=== PATIENT | male | born 1965 | race African-American/Black ===

== ENCOUNTER 2017-07-27 10:29 | Inpatient (IN) | payer OTHER ==
[2017-07-27 10:57] VITALS: BMI 29.7
--- NOTE | 2017-07-27 14:14 | HP ---
Admission [facility] Chief Complaint: "I'm here for Alcohol and Substance Abuse." Patient is here for Rehab for Alcohol, Cocaine, and Marijuana. Allergies/Adverse Reactions: Allergies Allergy/AdvReac Type Severity Reaction Status Date / Time tomato Allergy Severe Swelling Verified 07/27/17 10:57 No Known Drug Allergies Allergy Verified 07/27/17 10:57 History of Present Illness: Pt. is a 51 YO male here for Rehab for Alcohol, Cocaine, and Marijuana. Patient had a Detox admission at [facility] [place] in 06/2017. Longest recent period of sobriety: approx. 5 years (2011 - 02/2017). Exam Limitations: No Limitations - Ebola screening Have you traveled outside of the country in the last 21 days: No Have you had contact with anyone from an Ebola affected area: No Have you been sick,other than usual withdrawal symptoms: No Do you have a fever: No - Review of Systems Constitutional: Malaise, Night Sweats, Changes in sleep EENT: reports: Hearing Loss (Left Ear.) Respiratory: reports: No Symptoms reported Cardiac: reports: No Symptoms Reported GI: reports: No Symptoms Reported : reports: No Symptoms Reported Musculoskeletal: reports: No Symptoms Reported Integumentary: reports: No Symptoms Reported Neuro: reports: Headache Endocrine: reports: No Symptoms Reported Hematology: reports: Anemia (Iron-Deficiency type in past.) Psychiatric: reports: Judgement Intact, Mood/Affect Appropiate, Orientated x3, Depressed (Verbal Therapy only in past.) Other Systems: Reviewed and Negative Patient History - Patient Medical History Hx Anemia: Yes (Iron-Deficiency type in past.) Hx Asthma: No Hx Chronic Obstructive Pulmonary Disease (COPD): No Hx Cancer: No Hx Cardiac Disorders: No Hx Congestive Heart Failure: No Hx Hypertension: No Hx Hypercholesterolemia: Yes (Takes Zocor.) Hx Pacemaker: No HX Cerebrovascular Accident: No Hx Seizures: No Hx Dementia: No Hx Diabetes: No Hx Gastrointestinal Disorders: No Hx Liver Disease: No Hx Genitourinary Disorders: No Hx Sexually Transmitted Disorders: No Hx Renal Disease (ESRD): No Hx Thyroid Disease: No Hx Human Immunodeficiency Virus (HIV): No (Negative History.) Hx Hepatitis C: No (Negative History.) Hx Depression: Yes (Verbal Therapy only in past; No meds.) Hx Suicide Attempt: No (PATIENT DENIES CURRENT SI / HI.) Hx Bipolar Disorder: No Hx Schizophrenia: No Other Medical History: PTSD. - Patient Surgical History Past Surgical History: No Hx Neurologic Surgery: No Hx Cataract Extraction: No Hx Cardiac Surgery: No Hx Lung Surgery: No Hx Breast Surgery: No Hx Breast Biopsy: No Hx Abdominal Surgery: No Hx Appendectomy: No Hx Cholecystectomy: No Hx Genitourinary Surgery: No Hx Orthopedic Surgery: No Other Surgical History: DENIES. Anesthesia Reaction: No - PPD History Previous Implant?: Yes Documented Results: Negative w/o proof Implanted On Prior [facility] Admission?: No PPD to be Administered?: Yes - Reproductive History Patient is a Female of Child Bearing Age (11 -55 yrs old): No (PATIENT IS MALE.) - Smoking Cessation Smoking history: Never smoked Have you smoked in the past 12 months: No Cigars Per Day: 0 Hx Chewing Tobacco Use: No Initiated information on smoking cessation: No - Substance & Tx. History Hx Alcohol Use: Yes Hx Substance Use: Yes Substance Use Type: Alcohol, Cocaine, Marijuana Hx Substance Use Treatment: Yes (Detox admssion at [facility] [place] 2016.) - Substances Abused Alcohol Route: Oral Frequency: Daily Amount used: 2-3 PINTS VODKA/12 PK BEER Age of first use: 9 Date of Last Use: 07/27/17 Crack Route: Smoking Frequency: Daily Amount used: $100 Age of first use: 20 Date of Last Use: 07/26/17 Marijuana/Hashish Route: Smoking Frequency: Daily Amount used: 1/2 JOINT Age of first use: 9 Date of Last Use: 07/25/17 Family Disease History - Family Disease History Family History: Denies Admission Physical Exam BHS - Vital Signs Vital Signs: Vital Signs - 24 hr 07/27/17 10:55 Temperature 98.2 F Pulse Rate 79 Respiratory 20 Rate Blood Pressure 122/77 - Physical General Appearance: Yes: Nourished, Appropriately Dressed, Mild Distress, Irritable, Anxious HEENTM: Yes: Hearing grossly Normal, Normocephalic, Normal Voice, DELTA, Pharynx Normal Respiratory: Yes: Chest Non-Tender, Lungs Clear, No Respiratory Distress, No Accessory Muscle Use Neck: Yes: No masses,lesions,Nodules, Supple, Trachea in good position Breast: Yes: Breast Exam Deferred Cardiology: Yes: Regular Rhythm, Regular Rate, S1, S2 Abdominal: Yes: Normal Bowel Sounds, Non Tender, Flat, Soft Genitourinary: Yes: Within Normal Limits Back: Yes: Normal Inspection Musculoskeletal: Yes: full range of Motion, Gait Steady Extremities: Yes: Normal Range of Motion, Non-Tender Neurological: Yes: Fully Oriented, Alert, Normal Mood/Affect, Normal Response Integumentary: Yes: Normal Color, Dry, Warm Lymphatic: Yes: Within Normal Limits - Diagnostic (1) Alcohol dependence, uncomplicated Current Visit: Yes Status: Chronic (2) Hypercholesterolemia Current Visit: Yes Status: Chronic (3) Cocaine dependence, uncomplicated Current Visit: Yes Status: Chronic (4) Cannabis dependence, uncomplicated Current Visit: Yes Status: Chronic (5) Insomnia Current Visit: Yes Status: Chronic Qualifiers: Insomnia type: unspecified Qualified Code(s): G47.00 - Insomnia, unspecified; G47.00 - Insomnia, unspecified (6) History of posttraumatic stress disorder (PTSD) Current Visit: Yes Status: Chronic Cleared for Admission [facility] - Detox or Rehab Claeared for Rehab Admission: Yes (HARMAN Re-Checked Just Prior to Admission Medical Assessment: 0.049.) [facility] Breath Alcohol Content Breath Alcohol Content: 0.108 Urine Drug Screen - Results Drug Screen Negative: No Urine Drug Screen Results: ROBY-Cocaine Inpatient Rehab Admission - Initial Determination Are CD services needed?: Yes Free of communicable disease: Yes Not in need of hospitalization: Yes - Rehab Admission Criteria Previous failed treatment: Yes Comorbidities: Yes Patient is meeting Inpatient Rehab admission criteria:: Yes
[2017-07-27] MEDS ORDERED: guaiFENesin/D-METHORPHAN HB 10 ML UNIT-DOSE CUPS PO PRN (15:04)
[2017-07-27] MEDS ORDERED: IBUPROFEN 400 MG TABLET (FP) PO PRN (15:04)
[2017-07-27] MEDS ORDERED: MAG HYDROX/AL HYDROX/SIMETH 30 ML UNIT-DOSE CUP PO PRN (15:04)
[2017-07-27] MEDS ORDERED: ACETAMINOPHEN 325 MG TABLET (FP) PO PRN (15:04)
[2017-07-27] MEDS ORDERED: P-EPHED 60MG/TRIPROLIDI 2.5MG TABLET PO PRN (15:04)
[2017-07-27] MEDS ORDERED: MAGNESIUM CITRATE 300 ML BOTTLE PO PRN (15:04)
[2017-07-27] MEDS ORDERED: LOPERAMIDE HCL 2 MG CAPSULE PO PRN (15:04)
[2017-07-27] MEDS ORDERED: MAGNESIUM HYDROX 2400MG/30ML ORAL SUSPENSION 30 ML CUP PO PRN (15:04)
[2017-07-27] MEDS ORDERED: hydrOXYzine PAMOATE 50 MG CAPSULE (FP) PO PRN (15:04)
[2017-07-27] MEDS ORDERED: MENTHOL/PHENOL 1 EACH UD MM PRN (15:04)
[2017-07-27] MEDS ORDERED: TUBERCULIN PPD 5 TU/0.1ML VIAL ID ONE ×2 (16:41→17:39)
[2017-07-27 17:03] LABS: URINE APPEARANCE CLEAR; URINE BILIRUBIN NEGATIVE (NEGATIVE); URINE BLOOD NEGATIVE (NEGATIVE); URINE COLOR COLORLESS; URINE GLUCOSE (UA) NEGATIVE (NEGATIVE); URINE KETONE NEGATIVE (NEGATIVE); URINE NITRITE NEGATIVE (NEGATIVE); URINE PROTEIN NEGATIVE (NEGATIVE); URINE UROBILINOGEN NEGATIVE mg/dL (0.2-1.0)
[2017-07-27 17:08] LABS: MCH 29.6 pg (25.7-33.7); MCHC 33.6 g/dl (32.0-35.9); MEAN CELL VOLUME 88.2 fl (80-96); MEAN PLT VOLUME 8.3 fl (7.5-11.1); PLATELET COUNT 220 K/MM3 (134-434); RDW 12.5 % (11.9-15.9); WHITE BLOOD COUNT 4.6 K/mm3 (4.0-10.0)
[2017-07-27] MEDS: ASPIRIN 81 MG CHEWABLE TABLETS PO SCH (17:35)
[2017-07-27 17:43] LABS: ALBUMIN 3.8 g/dl (3.4-5.0); ALK PHOS 71 U/L (45-117); ANION GAP 10 (8-16); BILIRUBIN,TOTAL 0.6 mg/dL (0.2-1.0); CALCIUM 9.1 mg/dL (8.5-10.1); CO2 26 mmol/L (21-32); CREATININE 1.1 mg/dL (0.7-1.3); GLUCOSE,RANDOM 93 mg/dL (74-106); SGOT/AST 31 U/L (15-37); SGPT/ALT 39 U/L (12-78); TOT PROT 7.3 g/dl (6.4-8.2)
--- NOTE | 2017-07-27 18:16 | PN ---
[facility] Progress Note Note: Psychiatry Attending's psychologist personnel note : Called to enter an order for trazodone. New admission : 51 y/o male with chronic insomnia. Recently discharged from [facility]. No prior history of psychiatric hospitalizations. Issues : Alcohol,cocaine and cannabis dependence. Last took trazodone 100 mg/hs on 07/18/17 (self-report). [facility] report is appreciated.Spoke to patient via telephone. History taken.Reliable.Intervention : Trazodone 50 mg po hs.Ordered. Risk of priapism is discussed with patient. NO reported history of adverse events. Mr Hummel is in agreement with this careplan.
[2017-07-27] MEDS: THIAMINE HCL 100 MG TABLET (FP) PO SCH (21:17)
[2017-07-27] MEDS: ATORVASTATIN CA 10 MG TABLET (FP) PO SCH (21:17)
[2017-07-27] MEDS: traZODone HCL 50 MG TABLET (FP) PO SCH (21:17)
[2017-07-27 22:49] LABS: URINE LEUK ESTERASE Negative (NEGATIVE)
[2017-07-28] MEDS: PRENATAL VITAMINS W/ FOLIC ACID TABLET (FP) PO SCH (09:58)
[2017-07-28] MEDS: ASPIRIN 81 MG CHEWABLE TABLETS PO SCH (09:58)
--- NOTE | 2017-07-28 10:25 | EKG ---
Test Reason : Blood Pressure : / mmHG Vent. Rate : 065 BPM Atrial Rate : 065 BPM P-R Int : 188 ms QRS Dur : 082 ms QT Int : 402 ms P-R-T Axes : 051 032 027 degrees QTc Int : 418 ms NORMAL SINUS RHYTHM POSSIBLE LEFT ATRIAL ENLARGEMENT ST ELEVATION, CONSIDER EARLY REPOLARIZATION BORDERLINE ECG WHEN COMPARED WITH ECG OF 27-JUL-2017 23:37, NO SIGNIFICANT CHANGE WAS FOUND Confirmed by JOLIE MCMULLEN, DEEPAK ([id number]) on 07/28/2017 10:25:10 AM Referred By: Confirmed By:DEEPAK DAVE MD
[2017-07-28] MEDS ORDERED: FLU VACCINE QUAD 60 MCG/0.5 ML (MDV 17-18) IM ONE (12:00)
[2017-07-28] MEDS ORDERED: PNEUMOCOCCAL 23 VACCINE 0.5 ML VIAL IM ONE (12:00)
[2017-07-28] MEDS ORDERED: PNEUMOC 13-VAL CONJ-DIP CRM/PF 0.5 ML DISP.SYRIN IM ONE (12:00)
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
[2017-07-28 13:44] LABS: HIV 1 & 2 AB NEGATIVE; HIV 1 AGp24 NEGATIVE
[2017-07-28] MEDS: traZODone HCL 50 MG TABLET (FP) PO SCH (21:22)
[2017-07-28] MEDS: ATORVASTATIN CA 10 MG TABLET (FP) PO SCH (21:22)
[2017-07-28] MEDS: THIAMINE HCL 100 MG TABLET (FP) PO SCH (21:22)
[2017-07-29] MEDS: ESCITALOPRAM OXALATE 10 MG TABLET (FP) PO SCH (10:06)
[2017-07-29] MEDS: PRENATAL VITAMINS W/ FOLIC ACID TABLET (FP) PO SCH (10:06)
[2017-07-29] MEDS: ASPIRIN 81 MG CHEWABLE TABLETS PO SCH (10:06)
--- NOTE | 2017-07-29 15:20 | PN ---
Psychiatric Progress Note Vital Signs: Vital Signs Period Temp Pulse Resp BP Sys/Arreola Pulse Ox Last 24 Hr 98.0 F 80 18-18 106/78 Date of Session: 07/29/17 Chief Complaint:: progress update. HPI: Patient is addressing alcohol, cocaine, cannabis dependence comorbid PTSD, Mood diorder. ROS: WNL Current Medications: Active Medications Generic Name Dose Route Start Last Admin Trade Name Freq PRN Reason Stop Dose Admin Acetaminophen 650 mg 07/27/17 15:04 Tylenol - PO Q4H PRN PAIN Al Hydroxide/Mg Hydroxide 30 ml 07/27/17 15:04 Mylanta Oral Suspension - PO Q6H PRN DYSPEPSIA Aspirin 81 mg 07/27/17 15:51 07/29/17 10:06 Asa - PO 81 mg DAILY JANICE Administration Atorvastatin Calcium 10 mg 07/27/17 22:00 07/28/17 21:22 Lipitor - PO 10 mg HS JANICE Administration Escitalopram Oxalate 10 mg 07/29/17 10:00 07/29/17 10:06 Lexapro - PO 10 mg DAILY JANICE Administration Eucalyptus/Menthol/Phenol/Sorbitol 1 each 07/27/17 15:04 Cepastat Lozenge - MM Q4H PRN SORE THROAT Guaifenesin 10 ml 07/27/17 15:04 Robitussin Dm - PO Q6H PRN COUGH Hydroxyzine Pamoate 50 mg 07/27/17 15:04 Vistaril - PO Q4H PRN AGITATION Ibuprofen 400 mg 07/27/17 15:04 Motrin - PO Q6H PRN SEVERE PAIN Loperamide HCl 4 mg 07/27/17 15:04 Imodium - PO Q6H PRN DIARRHEA Magnesium Citrate 300 ml 07/27/17 15:04 Citroma - PO Q48H PRN CONSTIPATION Magnesium Hydroxide 30 ml 07/27/17 15:04 Milk Of Magnesia - PO DAILY PRN CONSTIPATION Multivit/Folic Acid/Iron 1 tab 07/28/17 10:00 07/29/17 10:06 Vitamins (Sjr) - PO 1 tab DAILY JANICE Administration Pseudoephedrine/Triprolidine 1 combo 07/27/17 15:04 Actifed - PO TID PRN NASAL CONGESTION Thiamine HCl 100 mg 07/27/17 22:00 07/28/17 21:22 Vitamin B1 - PO 100 mg HS JANICE Administration Trazodone HCl 100 mg 07/29/17 15:18 Desyrel - PO HS JANICE Current Side Effect: No Lab tests ordered: No Lab tests reviewed: Yes Provider note:: Patient reports he feels depressed, unable to sleep well, he has flashbaks and nightmares relate to trauma. Reports treated with Trazodone, wants to restart. Psychoeducation and supports provided, will add Trazodone, continue to monitor progress. Total face to face time:: 25 Mental Status Exam - Mental Status Exam Alert and Oriented to: Time, Place, Person Cognitive Function: Good Patient Appearance: Well Groomed Mood: Sad, Anxious Affect: Appropriate, Mood Congruent Patient Behavior: Appropriate, Cooperative Speech Pattern: Clear, Appropriate Voice Loudness: Normal Thought Process: Intact, Goal Oriented Thought Disorder: Not Present Hallucinations: Denies Suicidal Ideation: Denies Homicidal Ideation: Denies Insight/Judgement: Fair Sleep: Fair Appetite: Good Muscle strength/Tone: Normal Psychiatric Treatment Plan - Problem List (1) Alcohol dependence Current Visit: Yes (2) Cocaine dependence Current Visit: Yes (3) Cannabis dependence Current Visit: Yes (4) Post traumatic stress disorder (PTSD) Current Visit: Yes (5) Mood disorder Current Visit: Yes
[2017-07-29] MEDS: traZODone HCL 100 MG TABLET (FP) PO SCH (21:23)
[2017-07-29] MEDS: ATORVASTATIN CA 10 MG TABLET (FP) PO SCH (21:23)
[2017-07-29] MEDS: THIAMINE HCL 100 MG TABLET (FP) PO SCH (21:23)
[2017-07-30] MEDS: PRENATAL VITAMINS W/ FOLIC ACID TABLET (FP) PO SCH (10:13)
[2017-07-30] MEDS: ASPIRIN 81 MG CHEWABLE TABLETS PO SCH (10:13)
[2017-07-30] MEDS: ESCITALOPRAM OXALATE 10 MG TABLET (FP) PO SCH (10:13)
--- NOTE | 2017-07-30 12:00 | EKG ---
Test Reason : Blood Pressure : / mmHG Vent. Rate : 065 BPM Atrial Rate : 065 BPM P-R Int : 186 ms QRS Dur : 078 ms QT Int : 412 ms P-R-T Axes : 054 036 038 degrees QTc Int : 428 ms NORMAL SINUS RHYTHM ST ELEVATION, CONSIDER EARLY REPOLARIZATION, PERICARDITIS, OR INJURY ABNORMAL ECG NO PREVIOUS ECGS AVAILABLE Confirmed by LOVELY ALVAREZ MD ([id number]) on 07/30/2017 12:00:17 PM Referred By: Confirmed By:LOVELY ALVAREZ MD
[2017-07-30] MEDS: traZODone HCL 100 MG TABLET (FP) PO SCH (21:27)
[2017-07-30] MEDS: ATORVASTATIN CA 10 MG TABLET (FP) PO SCH (21:27)
[2017-07-30] MEDS: THIAMINE HCL 100 MG TABLET (FP) PO SCH (21:28)
[2017-07-31] MEDS: ESCITALOPRAM OXALATE 10 MG TABLET (FP) PO SCH (09:52)
[2017-07-31] MEDS: PRENATAL VITAMINS W/ FOLIC ACID TABLET (FP) PO SCH (09:52)
[2017-07-31] MEDS: ASPIRIN 81 MG CHEWABLE TABLETS PO SCH (09:53)
[2017-07-31] MEDS: ATORVASTATIN CA 10 MG TABLET (FP) PO SCH (21:15)
[2017-07-31] MEDS: traZODone HCL 100 MG TABLET (FP) PO SCH (21:15)
[2017-07-31] MEDS: THIAMINE HCL 100 MG TABLET (FP) PO SCH (21:15)
[2017-08-01] MEDS: ESCITALOPRAM OXALATE 10 MG TABLET (FP) PO SCH (09:56)
[2017-08-01] MEDS: PRENATAL VITAMINS W/ FOLIC ACID TABLET (FP) PO SCH (09:56)
[2017-08-01] MEDS: ASPIRIN 81 MG CHEWABLE TABLETS PO SCH (09:56)
[2017-08-01] MEDS: THIAMINE HCL 100 MG TABLET (FP) PO SCH (21:23)
[2017-08-01] MEDS: traZODone HCL 100 MG TABLET (FP) PO SCH (21:23)
[2017-08-01] MEDS: ATORVASTATIN CA 10 MG TABLET (FP) PO SCH (21:23)
[2017-08-02] MEDS: ASPIRIN 81 MG CHEWABLE TABLETS PO SCH (09:38)
[2017-08-02] MEDS: PRENATAL VITAMINS W/ FOLIC ACID TABLET (FP) PO SCH (09:38)
[2017-08-02] MEDS: ESCITALOPRAM OXALATE 10 MG TABLET (FP) PO SCH (09:38)
[2017-08-02] MEDS: traZODone HCL 100 MG TABLET (FP) PO SCH (21:23)
[2017-08-02] MEDS: THIAMINE HCL 100 MG TABLET (FP) PO SCH (21:23)
[2017-08-02] MEDS: ATORVASTATIN CA 10 MG TABLET (FP) PO SCH (21:23)
[2017-08-03] MEDS: PRENATAL VITAMINS W/ FOLIC ACID TABLET (FP) PO SCH (09:46)
[2017-08-03] MEDS: ASPIRIN 81 MG CHEWABLE TABLETS PO SCH (09:46)
[2017-08-03] MEDS: ESCITALOPRAM OXALATE 10 MG TABLET (FP) PO SCH (09:46)
[2017-08-03] MEDS: THIAMINE HCL 100 MG TABLET (FP) PO SCH (21:12)
[2017-08-03] MEDS: ATORVASTATIN CA 10 MG TABLET (FP) PO SCH (21:12)
[2017-08-03] MEDS: traZODone HCL 100 MG TABLET (FP) PO SCH (21:12)
[2017-08-04] MEDS: PRENATAL VITAMINS W/ FOLIC ACID TABLET (FP) PO SCH (09:50)
[2017-08-04] MEDS: ESCITALOPRAM OXALATE 10 MG TABLET (FP) PO SCH (09:50)
[2017-08-04] MEDS: ASPIRIN 81 MG CHEWABLE TABLETS PO SCH (09:51)
[2017-08-04] MEDS: THIAMINE HCL 100 MG TABLET (FP) PO SCH (21:10)
[2017-08-04] MEDS: traZODone HCL 100 MG TABLET (FP) PO SCH (21:10)
[2017-08-04] MEDS: ATORVASTATIN CA 10 MG TABLET (FP) PO SCH (21:10)
[2017-08-05] MEDS: ESCITALOPRAM OXALATE 10 MG TABLET (FP) PO SCH (09:59)
[2017-08-05] MEDS: ASPIRIN 81 MG CHEWABLE TABLETS PO SCH (09:59)
[2017-08-05] MEDS: PRENATAL VITAMINS W/ FOLIC ACID TABLET (FP) PO SCH (09:59)
[2017-08-05] MEDS: traZODone HCL 100 MG TABLET (FP) PO SCH (21:16)
[2017-08-05] MEDS: ATORVASTATIN CA 10 MG TABLET (FP) PO SCH (21:16)
[2017-08-05] MEDS: THIAMINE HCL 100 MG TABLET (FP) PO SCH (21:16)
[2017-08-06] MEDS: ESCITALOPRAM OXALATE 10 MG TABLET (FP) PO SCH (09:50)
[2017-08-06] MEDS: PRENATAL VITAMINS W/ FOLIC ACID TABLET (FP) PO SCH (09:50)
[2017-08-06] MEDS: ASPIRIN 81 MG CHEWABLE TABLETS PO SCH (09:50)
[2017-08-06] MEDS: THIAMINE HCL 100 MG TABLET (FP) PO SCH (21:10)
[2017-08-06] MEDS: traZODone HCL 100 MG TABLET (FP) PO SCH (21:10)
[2017-08-06] MEDS: ATORVASTATIN CA 10 MG TABLET (FP) PO SCH (21:10)
[2017-08-07] MEDS: ASPIRIN 81 MG CHEWABLE TABLETS PO SCH (09:48)
[2017-08-07] MEDS: ESCITALOPRAM OXALATE 10 MG TABLET (FP) PO SCH (09:49)
[2017-08-07] MEDS: PRENATAL VITAMINS W/ FOLIC ACID TABLET (FP) PO SCH (09:49)
[2017-08-07] MEDS: THIAMINE HCL 100 MG TABLET (FP) PO SCH (21:11)
[2017-08-07] MEDS: traZODone HCL 100 MG TABLET (FP) PO SCH (21:11)
[2017-08-07] MEDS: ATORVASTATIN CA 10 MG TABLET (FP) PO SCH (21:11)
[2017-08-08] MEDS: ESCITALOPRAM OXALATE 10 MG TABLET (FP) PO SCH (09:49)
[2017-08-08] MEDS: PRENATAL VITAMINS W/ FOLIC ACID TABLET (FP) PO SCH (09:49)
[2017-08-08] MEDS: ASPIRIN 81 MG CHEWABLE TABLETS PO SCH (09:49)
[2017-08-08] MEDS: ATORVASTATIN CA 10 MG TABLET (FP) PO SCH (21:17)
[2017-08-08] MEDS: traZODone HCL 100 MG TABLET (FP) PO SCH (21:17)
[2017-08-08] MEDS: THIAMINE HCL 100 MG TABLET (FP) PO SCH (21:17)
[2017-08-09 06:52] VITALS: TEMP 97.8
[2017-08-09] MEDS: ASPIRIN 81 MG CHEWABLE TABLETS PO SCH (10:15)
[2017-08-09] MEDS: ESCITALOPRAM OXALATE 10 MG TABLET (FP) PO SCH (10:15)
[2017-08-09] MEDS: PRENATAL VITAMINS W/ FOLIC ACID TABLET (FP) PO SCH (10:15)
[2017-08-09] MEDS: ATORVASTATIN CA 10 MG TABLET (FP) PO SCH (21:19)
[2017-08-09] MEDS: THIAMINE HCL 100 MG TABLET (FP) PO SCH (21:19)
[2017-08-09] MEDS: traZODone HCL 100 MG TABLET (FP) PO SCH (21:19)
[2017-08-10 06:46] VITALS: BP 120/67; PULSE 66
[2017-08-10] MEDS: ESCITALOPRAM OXALATE 10 MG TABLET (FP) PO SCH (09:50)
[2017-08-10] MEDS: ASPIRIN 81 MG CHEWABLE TABLETS PO SCH (09:50)
[2017-08-10] MEDS: PRENATAL VITAMINS W/ FOLIC ACID TABLET (FP) PO SCH (09:50)
--- NOTE | 2017-08-10 10:04 | PN ---
Psychiatric Progress Note Vital Signs: Vital Signs Period Temp Pulse Resp BP Sys/Arreola Pulse Ox Last 24 Hr 97.8 F 66 16-16 120/67 Date of Session: 08/10/17 Chief Complaint:: discharge visit HPI: Patient has addressed alcohol, cocaine, cannabis dependence comorbid PTSD and Mood disorder. ROS: high cholesterol medically managed. Current Medications: Active Medications Generic Name Dose Route Start Last Admin Trade Name Freq PRN Reason Stop Dose Admin Acetaminophen 650 mg 07/27/17 15:04 Tylenol - PO Q4H PRN PAIN Al Hydroxide/Mg Hydroxide 30 ml 07/27/17 15:04 Mylanta Oral Suspension - PO Q6H PRN DYSPEPSIA Aspirin 81 mg 07/27/17 15:51 08/10/17 09:50 Asa - PO 81 mg DAILY JANICE Administration Atorvastatin Calcium 10 mg 07/27/17 22:00 08/09/17 21:19 Lipitor - PO 10 mg HS JANICE Administration Escitalopram Oxalate 10 mg 07/29/17 10:00 08/10/17 09:50 Lexapro - PO 10 mg DAILY JANICE Administration Eucalyptus/Menthol/Phenol/Sorbitol 1 each 07/27/17 15:04 Cepastat Lozenge - MM Q4H PRN SORE THROAT Guaifenesin 10 ml 07/27/17 15:04 Robitussin Dm - PO Q6H PRN COUGH Hydroxyzine Pamoate 50 mg 07/27/17 15:04 Vistaril - PO Q4H PRN AGITATION Ibuprofen 400 mg 07/27/17 15:04 Motrin - PO Q6H PRN SEVERE PAIN Loperamide HCl 4 mg 07/27/17 15:04 Imodium - PO Q6H PRN DIARRHEA Magnesium Citrate 300 ml 07/27/17 15:04 Citroma - PO Q48H PRN CONSTIPATION Magnesium Hydroxide 30 ml 07/27/17 15:04 Milk Of Magnesia - PO DAILY PRN CONSTIPATION Multivit/Folic Acid/Iron 1 tab 07/28/17 10:00 08/10/17 09:50 Vitamins (Sjr) - PO 1 tab DAILY JANICE Administration Pseudoephedrine/Triprolidine 1 combo 07/27/17 15:04 Actifed - PO TID PRN NASAL CONGESTION Thiamine HCl 100 mg 07/27/17 22:00 08/09/17 21:19 Vitamin B1 - PO 100 mg HS JANICE Administration Trazodone HCl 100 mg 07/29/17 22:00 08/09/17 21:19 Desyrel - PO 100 mg HS JANICE Administration Current Side Effect: No Lab tests ordered: No Lab tests reviewed: Yes Provider note:: Patient has completed today his treatment and met his goals, will continue to address his issues at the next level of care, he was referred to [facility] for resedential. Patient gained insights into importance of changning attitudes/behavior and utilitation of supports available to prevent relapses. Medications(Trazodone and Lexapro) well tolerated , patient reports he feels much better, his mood improved, he is more hopeful, will f/u at [facility] for his physical and mental issues. Patient was encouraged to take medications as directed. Scripts provided for 30 days, patient is stable for discharge today. Total face to face time:: 15 Mental Status Exam - Mental Status Exam Alert and Oriented to: Time, Place, Person Cognitive Function: Good Patient Appearance: Well Groomed Mood: Hopeful Affect: Appropriate, Mood Congruent Patient Behavior: Cooperative Speech Pattern: Clear, Appropriate Voice Loudness: Normal Thought Process: Intact, Goal Oriented Thought Disorder: Not Present Hallucinations: Denies Suicidal Ideation: Denies Homicidal Ideation: Denies Insight/Judgement: Fair Sleep: Fair Appetite: Fair Muscle strength/Tone: Normal Gait/Station: Normal Psychiatric Treatment Plan - Problem List (1) Alcohol dependence Current Visit: Yes (2) Cocaine dependence Current Visit: Yes (3) Cannabis dependence Current Visit: Yes (4) Post traumatic stress disorder (PTSD) Current Visit: Yes (5) Mood disorder Current Visit: Yes
== END 2017-08-10 10:30 | disposition home or self-care (01) | DRG 772 ==
LOC: YASAS 10:29 → Y5N 13:15
PROVIDERS: ADMIT Psychiatry & Neurology Psychiatry; ATTEND Psychiatry & Neurology Psychiatry
PROC: HZ42ZZZ Group Counseling for Substance Abuse Treatment, Cognitive-Behavioral (ICD-10-PCS; principal; 2017-07-27)
DX: F10.20 Alcohol dependence, uncomplicated (principal); F14.20 Cocaine dependence, uncomplicated; F12.20 Cannabis dependence, uncomplicated; F43.10 Post-traumatic stress disorder, unspecified; F39 Unspecified mood [affective] disorder; G47.00 Insomnia, unspecified; Z59.0 Homelessness
CPT/HCPCS: 36415; 80053; 81003; 85027; 85660; 86593; 86803; 87389; 90688; 90732; 93005; 93010; G0008; G0009

== ENCOUNTER 2017-09-07 08:19 | Inpatient (IN) | payer OTHER ==
[2017-09-07 08:47] VITALS: BMI 29.0
--- NOTE | 2017-09-07 12:52 | HP ---
CIWA Score - CIWA Score Nausea/Vomitin-Mild Nausea/No Vomiting Muscle Tremors: 4-Moderate,w/Arms Extend Anxiety: 3 Agitation: 3 Paroxysmal Sweats: 3 Orientation: 0-Oriented Tacttile Disturbances: 0-None Auditory Disturbances: 0-None Visual Disturbances: 0-None Headache: 1-Very Mild CIWA-Ar Total Score: 15 Admission ROS BHS - HPI Chief Complaint: I need detox and rehab Allergies/Adverse Reactions: Allergies Allergy/AdvReac Type Severity Reaction Status Date / Time tomato Allergy Severe Swelling Verified 07/27/17 10:57 No Known Drug Allergies Allergy Verified 07/27/17 10:57 History of Present Illness: Pt is a 51yr old male with history of alcohol and cocaine dependence seeking detox for treatment. Exam Limitations: No Limitations - Ebola screening Have you traveled outside of the country in the last 21 days: No (N) Have you had contact with anyone from an Ebola affected area: No Have you been sick,other than usual withdrawal symptoms: No Do you have a fever: No - Review of Systems Constitutional: Chills, Diaphoresis, Loss of Appetite, Night Sweats, Changes in sleep EENT: reports: Tearing Respiratory: reports: No Symptoms reported Cardiac: reports: Syncope GI: reports: Diarrhea, Poor Appetite, Poor Fluid Intake : reports: No Symptoms Reported Musculoskeletal: reports: Back Pain Integumentary: reports: Flushing, Sweating Endocrine: reports: Excessive Sweating, Flushing, Intolerance to Cold, Intolerance to Heat Hematology: reports: No Symptoms Reported Psychiatric: reports: Judgement Intact, Mood/Affect Appropiate, Orientated x3, Agitated, Anxious Other Systems: Reviewed and Negative Patient History - Patient Medical History Hx Anemia: Yes (Iron-Deficiency type in past.) Hx Asthma: No Hx Chronic Obstructive Pulmonary Disease (COPD): No Hx Cancer: No Hx Cardiac Disorders: No Hx Congestive Heart Failure: No Hx Hypertension: No Hx Hypercholesterolemia: Yes (Takes Zocor.) Hx Pacemaker: No HX Cerebrovascular Accident: No Hx Seizures: No Hx Dementia: No Hx Diabetes: No Hx Gastrointestinal Disorders: No Hx Liver Disease: No Hx Genitourinary Disorders: No Hx Sexually Transmitted Disorders: No Hx Renal Disease (ESRD): No Hx Thyroid Disease: No Hx Human Immunodeficiency Virus (HIV): No (Negative History.) Hx Hepatitis C: No (Negative History.) Hx Depression: Yes Hx Suicide Attempt: No Hx Bipolar Disorder: No Hx Schizophrenia: No - Patient Surgical History Past Surgical History: No Hx Neurologic Surgery: No Hx Cataract Extraction: No Hx Cardiac Surgery: No Hx Lung Surgery: No Hx Breast Surgery: No Hx Breast Biopsy: No Hx Abdominal Surgery: No Hx Appendectomy: No Hx Cholecystectomy: No Hx Genitourinary Surgery: No Hx Section: No Hx Orthopedic Surgery: No Other Surgical History: DENIES. Anesthesia Reaction: No - PPD History Previous Implant?: Yes Documented Results: Negative w/proof Implanted On Prior [facility] Admission?: Yes Date: 07/29/17 Results: 0 mm PPD to be Administered?: No - Reproductive History Patient is a Female of Child Bearing Age (11 -55 yrs old): No - Smoking Cessation Smoking history: Never smoked Have you smoked in the past 12 months: No Cigars Per Day: 0 Hx Chewing Tobacco Use: No Initiated information on smoking cessation: No - Substance & Tx. History Hx Alcohol Use: Yes Hx Substance Use: Yes Substance Use Type: Alcohol, Cocaine, Marijuana Hx Substance Use Treatment: Yes - Substances Abused Crack Route: Smoking Frequency: Daily Amount used: $100 Age of first use: 19 Date of Last Use: 09/06/17 Alcohol-beer Route: Oral Frequency: Daily Amount used: 2-6 pks. Age of first use: 10 Date of Last Use: 09/06/17 Marijuana Route: Smoking Frequency: 3-6 times per week Amount used: $10 Age of first use: 9 Date of Last Use: 09/06/17 Family Disease History - Family Disease History Family History: Denies Admission Physical Exam S - Vital Signs Vital Signs: Vital Signs - 24 hr 09/07/17 08:45 Temperature 98.9 F Pulse Rate 85 Respiratory 18 Rate Blood Pressure 127/80 - Physical General Appearance: Yes: Appropriately Dressed, Moderate Distress, Tremorous, Irritable, Sweating, Anxious HEENTM: Yes: Hearing grossly Normal, Normal Voice, Rhinorrhea Neck: Yes: No masses,lesions,Nodules Breast: Yes: Within Normal Limits Cardiology: Yes: Regular Rhythm, Regular Rate, S1, S2 Abdominal: Yes: Normal Bowel Sounds Genitourinary: Yes: Within Normal Limits Back: Yes: Normal Inspection Musculoskeletal: Yes: full range of Motion, Gait Steady Extremities: Yes: Normal Capillary Refill, Normal Inspection, Tremors Neurological: Yes: Fully Oriented, Alert, Normal Response Integumentary: Yes: Normal Color, Diaphoresis Lymphatic: Yes: Within Normal Limits - Diagnostic (1) Cannabis dependence Current Visit: Yes Status: Chronic (2) Cocaine dependence Current Visit: Yes Status: Chronic Qualifiers: Substance use status: uncomplicated Qualified Code(s): F14.20 - Cocaine dependence, uncomplicated (3) Alcohol dependence, uncomplicated Current Visit: Yes Status: Chronic Cleared for Admission [facility] - Detox or Rehab [facility] Level of Care: Medically Managed Detox Regimen/Protocol: Librium [facility] Breath Alcohol Content Breath Alcohol Content: 0 Urine Drug Screen - Results Drug Screen Negative: No Urine Drug Screen Results: THC-Marijuana, ROBY-Cocaine
[2017-09-07] MEDS ORDERED: ACETAMINOPHEN 325 MG TABLET (FP) PO PRN (12:57)
[2017-09-07] MEDS ORDERED: guaiFENesin/D-METHORPHAN HB 10 ML UNIT-DOSE CUPS PO PRN (12:57)
[2017-09-07] MEDS ORDERED: MENTHOL/PHENOL 1 EACH UD MM PRN (12:57)
[2017-09-07] MEDS ORDERED: LOPERAMIDE HCL 2 MG CAPSULE PO PRN (12:57)
[2017-09-07] MEDS ORDERED: hydrOXYzine PAMOATE 50 MG CAPSULE (FP) PO PRN (12:57)
[2017-09-07] MEDS ORDERED: MAG HYDROX/AL HYDROX/SIMETH 30 ML UNIT-DOSE CUP PO PRN (12:57)
[2017-09-07] MEDS ORDERED: MAGNESIUM CITRATE 300 ML BOTTLE PO PRN (12:57)
[2017-09-07] MEDS ORDERED: P-EPHED 60MG/TRIPROLIDI 2.5MG TABLET PO PRN (12:57)
[2017-09-07] MEDS ORDERED: chlordiazePOXIDE HCL 25 MG CAPSULE PO PRN (12:57)
[2017-09-07] MEDS ORDERED: MAGNESIUM HYDROX 2400MG/30ML ORAL SUSPENSION 30 ML CUP PO PRN (12:57)
[2017-09-07] MEDS ORDERED: IBUPROFEN 400 MG TABLET (FP) PO PRN (12:57)
[2017-09-07] MEDS ORDERED: chlordiazePOXIDE HCL 25 MG CAPSULE PO ONE (13:30)
--- NOTE | 2017-09-07 15:32 | CONSULT ---
[facility] Psychiatric Consult - Data Date of interview: 09/07/17 Admission source: [facility] Identifying data: Readmission to [facility] for this 51 y/o AA male seeking detox treatment on for alcohol,cocaine and cannabis dependence.Patient is single without children,homeless,currently unemployed and supported on odd jobs. Substance Abuse History: Discussed in this interview.Patient confirmed the addictions described in the current [facility] report : Smoking history: Never smoked. Have you smoked in the past 12 months: No. Cigars Per Day: 0. Hx Chewing Tobacco Use: No. Initiated information on smoking cessation: No. - Substance & Tx. History. Hx Alcohol Use: Yes. Hx Substance Use: Yes. Substance Use Type: Alcohol, Cocaine, Marijuana. Hx Substance Use Treatment: Yes. - Substances Abused. Crack. Route: Smoking. Frequency: Daily. Amount used: $100. Age of first use: 19. Date of Last Use: 09/06/17. Alcohol-beer. Route: Oral. Frequency: Daily. Amount used: 2-6 pks. Age of first use: 10. Date of Last Use: 09/06/17. Marijuana. Route: Smoking. Frequency: 3-6 times per week. Amount used: $10. Age of first use: 9. Date of Last Use: 09/06/17 Medical History: Anemia and hypercholesterolemia. Psychiatric History: No reported history of psychiatric hospitalizations.Patient was firts introduced to psychotropic medications during an admission at [facility] (diagnosed there with MDD and prescribed lexapro and trazodone).[facility].Mr Hummel resumed treatment on [facility] in July 2017.Diagnosed with MDD and PTSD.Patient denies history of suicide attempts. Physical/Sexual Abuse/Trauma History: Patient declines to discuss this domain. Additional Comment: Urine Drug Screen Results: THC-Marijuana, ROBY-Cocaine.Noted. Mental Status Exam - Mental Status Exam Alert and Oriented to: Time, Place, Person Cognitive Function: Good Patient Appearance: Well Groomed Mood: Nervous, Withdrawn Affect: Mood Congruent, Constricted Patient Behavior: Fatigued, Appropriate, Cooperative Speech Pattern: Clear, Appropriate Voice Loudness: Normal Thought Process: Intact, Goal Oriented Thought Disorder: Not Present Hallucinations: Denies Suicidal Ideation: Denies Homicidal Ideation: Denies Insight/Judgement: Fair Sleep: Poorly, Difficulty falling asleep Appetite: Good Muscle strength/Tone: Normal Gait/Station: Normal Psychiatric Findings - Problem List ([place] 1, 2,3) (1) Alcohol dependence, uncomplicated Current Visit: Yes Status: Acute (2) Cannabis dependence Current Visit: Yes Status: Acute (3) Cocaine dependence Current Visit: Yes Status: Acute Qualifiers: Substance use status: uncomplicated Qualified Code(s): F14.20 - Cocaine dependence, uncomplicated (4) Substance induced mood disorder Current Visit: Yes Status: Acute (5) History of posttraumatic stress disorder (PTSD) Current Visit: Yes Status: Chronic Comment: Self report.On medications.Non- adherent to OPD care. (6) Insomnia Current Visit: Yes Status: Chronic Qualifiers: Insomnia type: unspecified Qualified Code(s): G47.00 - Insomnia, unspecified - Initial Treatment Plan Initial Treatment Plan: Previous records are reviewed.Sleep hygiene discussed in session.Detoxification in progress.Medicaions : trazodone 100 mg po hs + ambien 10 mg po hs prn + lexapro 10 mg po daily.Side effects (including priapism ) / benefits of each medication are discussed with he patient.Mr Hummel consented (verbally) to follow this plan of care.Observation.
[2017-09-07 16:20] LABS: HIV 1 & 2 AB NEGATIVE; HIV 1 AGp24 NEGATIVE
[2017-09-07] MEDS: chlordiazePOXIDE HCL 25 MG CAPSULE PO SCH ×2 (17:02→22:04)
--- NOTE | 2017-09-07 19:00 | EKG ---
Test Reason : Blood Pressure : / mmHG Vent. Rate : 065 BPM Atrial Rate : 065 BPM P-R Int : 192 ms QRS Dur : 082 ms QT Int : 394 ms P-R-T Axes : 045 023 023 degrees QTc Int : 409 ms NORMAL SINUS RHYTHM NORMAL ECG WHEN COMPARED WITH ECG OF 28-JUL-2017 10:22, NO SIGNIFICANT CHANGE WAS FOUND Confirmed by MD MARTITA, TOMMY ([id number]) on 09/07/2017 6:59:53 PM Referred By: Confirmed By:TOMMY ANDERS MD
[2017-09-07 19:19] LABS: URINE APPEARANCE CLEAR; URINE BILIRUBIN NEGATIVE (NEGATIVE); URINE BLOOD NEGATIVE (NEGATIVE); URINE COLOR YELLOW; URINE GLUCOSE (UA) NEGATIVE (NEGATIVE); URINE KETONE NEGATIVE (NEGATIVE); URINE LEUK ESTERASE NEGATIVE (NEGATIVE); URINE NITRITE NEGATIVE (NEGATIVE); URINE PROTEIN NEGATIVE (NEGATIVE); URINE UROBILINOGEN NEGATIVE mg/dL (0.2-1.0)
[2017-09-07] MEDS ORDERED: ZOLPIDEM TARTRATE 10 MG TABLET (PARK CARE ONLY) PO PRN (22:00)
[2017-09-07] MEDS: THIAMINE HCL 100 MG TABLET (FP) PO SCH (22:04)
[2017-09-07] MEDS: traZODone HCL 100 MG TABLET (FP) PO SCH (22:04)
[2017-09-07] MEDS: ATORVASTATIN CA 10 MG TABLET (FP) PO SCH (22:04)
[2017-09-07 22:56] LABS: URINE LEUK ESTERASE Negative (NEGATIVE)
[2017-09-08] MEDS: chlordiazePOXIDE HCL 25 MG CAPSULE PO SCH ×4 (05:13→22:18)
[2017-09-08 10:08] LABS: MCH 28.4 pg (25.7-33.7); MEAN CELL VOLUME 88.9 fl (80-96); MEAN PLT VOLUME 8.8 fl (7.5-11.1); PLATELET COUNT 188 K/MM3 (134-434); RDW 12.8 % (11.9-15.9); WHITE BLOOD COUNT 4.8 K/mm3 (4.0-10.0)
[2017-09-08 10:26] LABS: ALBUMIN 3.4 g/dl (3.4-5.0); ALK PHOS 61 U/L (45-117); ANION GAP 6 (8-16); BILIRUBIN,TOTAL 0.7 mg/dL (0.2-1.0); CALCIUM 8.4 mg/dL (8.5-10.1); CO2 28 mmol/L (21-32); CREATININE 1.1 mg/dL (0.7-1.3); GLUCOSE,RANDOM 81 mg/dL (74-106); SGOT/AST 16 U/L (15-37); SGPT/ALT 31 U/L (12-78); TOT PROT 6.3 g/dl (6.4-8.2)
[2017-09-08] MEDS: ESCITALOPRAM OXALATE 10 MG TABLET (FP) PO SCH (10:32)
[2017-09-08] MEDS: PRENATAL VITAMINS W/ FOLIC ACID TABLET (FP) PO SCH (10:32)
[2017-09-08] MEDS: ASPIRIN 81 MG CHEWABLE TABLETS PO SCH (10:32)
--- NOTE | 2017-09-08 10:54 | PN ---
[facility] CIWA - CIWA Score Nausea/Vomitin-No Nausea/No Vomiting Muscle Tremors: 2 Anxiety: 4-Mod. Anxious/Guarded Agitation: 2 Paroxysmal Sweats: 3 Orientation: 0-Oriented Tacttile Disturbances: 3-Moderate Itch/Numb/Burn Auditory Disturbances: 2-Mild Harshness/Frighten Visual Disturbances: 0-None Headache: 0-None Present CIWA-Ar Total Score: 16 BHS Progress Note (SOAP) Subjective: Interrupted Sleep, Body Aches, Sweating. Objective: PT. A & O X 3. NO ACUTE DISTRESS. 09/08/17 10:51 Vital Signs Temperature 97.2 F L 09/08/17 09:13 Pulse Rate 93 H 09/08/17 09:13 Respiratory Rate 18 09/08/17 09:13 Blood Pressure 92/63 09/08/17 09:13 O2 Sat by Pulse Oximetry (%) Laboratory Tests 09/07/17 09/07/17 09/08/17 11:30 16:00 05:45 WBC 4.8 RBC 4.39 Hgb 12.5 D Hct 39.0 MCV 88.9 MCH 28.4 MCHC 32.0 RDW 12.8 Plt Count 188 MPV 8.8 Sodium Potassium Chloride Carbon Dioxide Anion Gap BUN Creatinine Creat Clearance w eGFR Random Glucose Calcium Total Bilirubin AST ALT Alkaline Phosphatase Total Protein Albumin Urine Color Yellow Urine Appearance Clear Urine pH 5.0 Ur Specific [place] 1.024 Urine Protein Negative Urine Glucose (UA) Negative Urine Ketones Negative Urine Blood Negative Urine Nitrite Negative Urine Bilirubin Negative Urine Urobilinogen Negative Ur Leukocyte Esterase Negative HIV 1&2 Antibody Screen Negative HIV P24 Antigen Negative 09/08/17 05:45 WBC RBC Hgb Hct MCV MCH MCHC RDW Plt Count MPV Sodium 142 Potassium 4.2 Chloride 108 H Carbon Dioxide 28 Anion Gap 6 L BUN 15 D Creatinine 1.1 Creat Clearance w eGFR > 60 Random Glucose 81 Calcium 8.4 L Total Bilirubin 0.7 AST 16 D ALT 31 D Alkaline Phosphatase 61 Total Protein 6.3 L Albumin 3.4 Urine Color Urine Appearance Urine pH Ur Specific [place] Urine Protein Urine Glucose (UA) Urine Ketones Urine Blood Urine Nitrite Urine Bilirubin Urine Urobilinogen Ur Leukocyte Esterase HIV 1&2 Antibody Screen HIV P24 Antigen LABS NOTED. RPR RESULT PENDING. 09/08/17 10:53 Assessment: 09/08/17 10:51 WITHDRAWAL SYMPTOMS. Plan: CONTINUE DETOX. INCREASE DAILY PO FLUID INTAKE.
[2017-09-08] MEDS: AMMONIUM LACTATE 12% LOTION 225 GM BOTTLE TP SCH ×2 (12:00→22:18)
[2017-09-08] MEDS: traZODone HCL 100 MG TABLET (FP) PO SCH (22:18)
[2017-09-08] MEDS: ATORVASTATIN CA 10 MG TABLET (FP) PO SCH (22:18)
[2017-09-08] MEDS: THIAMINE HCL 100 MG TABLET (FP) PO SCH (22:18)
[2017-09-09] MEDS: chlordiazePOXIDE HCL 25 MG CAPSULE PO SCH ×2 (05:28→10:20)
[2017-09-09] MEDS: ASPIRIN 81 MG CHEWABLE TABLETS PO SCH (10:19)
[2017-09-09] MEDS: PRENATAL VITAMINS W/ FOLIC ACID TABLET (FP) PO SCH (10:19)
[2017-09-09] MEDS: ESCITALOPRAM OXALATE 10 MG TABLET (FP) PO SCH (10:19)
[2017-09-09] MEDS: AMMONIUM LACTATE 12% LOTION 225 GM BOTTLE TP SCH ×2 (10:20→22:43)
--- NOTE | 2017-09-09 15:17 | PN ---
[facility] CIWA - CIWA Score Nausea/Vomitin-No Nausea/No Vomiting Muscle Tremors: 2 Anxiety: 3 Agitation: 3 Paroxysmal Sweats: 3 Orientation: 0-Oriented Tacttile Disturbances: 2-Mild Itch/Numbness/Burn Auditory Disturbances: 2-Mild Harshness/Frighten Visual Disturbances: 1-Very Mild Sensitivity Headache: 0-None Present CIWA-Ar Total Score: 16 S Progress Note (SOAP) Subjective: Body Aches, Tremors, Sweating. Objective: PT. A & O X 3, OBSERVED AMBULATING ON UNIT. NO ACUTE DISTRESS. 09/09/17 15:17 Vital Signs Temperature 96.3 F L 09/09/17 14:08 Pulse Rate 82 09/09/17 14:08 Respiratory Rate 18 09/09/17 14:08 Blood Pressure 100/67 09/09/17 14:08 O2 Sat by Pulse Oximetry (%) Laboratory Tests 09/07/17 09/07/17 09/08/17 11:30 16:00 05:45 WBC 4.8 RBC 4.39 Hgb 12.5 D Hct 39.0 MCV 88.9 MCH 28.4 MCHC 32.0 RDW 12.8 Plt Count 188 MPV 8.8 Sodium Potassium Chloride Carbon Dioxide Anion Gap BUN Creatinine Creat Clearance w eGFR Random Glucose Calcium Total Bilirubin AST ALT Alkaline Phosphatase Total Protein Albumin Urine Color Yellow Urine Appearance Clear Urine pH 5.0 Ur Specific [place] 1.024 Urine Protein Negative Urine Glucose (UA) Negative Urine Ketones Negative Urine Blood Negative Urine Nitrite Negative Urine Bilirubin Negative Urine Urobilinogen Negative Ur Leukocyte Esterase Negative RPR Titer HIV 1&2 Antibody Screen Negative HIV P24 Antigen Negative 09/08/17 09/08/17 05:45 05:45 WBC RBC Hgb Hct MCV MCH MCHC RDW Plt Count MPV Sodium 142 Potassium 4.2 Chloride 108 H Carbon Dioxide 28 Anion Gap 6 L BUN 15 D Creatinine 1.1 Creat Clearance w eGFR > 60 Random Glucose 81 Calcium 8.4 L Total Bilirubin 0.7 AST 16 D ALT 31 D Alkaline Phosphatase 61 Total Protein 6.3 L Albumin 3.4 Urine Color Urine Appearance Urine pH Ur Specific [place] Urine Protein Urine Glucose (UA) Urine Ketones Urine Blood Urine Nitrite Urine Bilirubin Urine Urobilinogen Ur Leukocyte Esterase RPR Titer Nonreactive HIV 1&2 Antibody Screen HIV P24 Antigen LABS NOTED. Assessment: 09/09/17 15:18 WITHDRAWAL SYMPTOMS. Plan: CONTINUE DETOX.
[2017-09-09] MEDS: chlordiazePOXIDE 5 MG CAPSULE PO SCH ×2 (18:05→22:43)
[2017-09-09] MEDS: traZODone HCL 100 MG TABLET (FP) PO SCH (22:43)
[2017-09-09] MEDS: THIAMINE HCL 100 MG TABLET (FP) PO SCH (22:43)
[2017-09-09] MEDS: ATORVASTATIN CA 10 MG TABLET (FP) PO SCH (22:43)
[2017-09-10] MEDS: chlordiazePOXIDE 5 MG CAPSULE PO SCH ×2 (05:37→10:27)
[2017-09-10] MEDS: PRENATAL VITAMINS W/ FOLIC ACID TABLET (FP) PO SCH (10:27)
[2017-09-10] MEDS: ESCITALOPRAM OXALATE 10 MG TABLET (FP) PO SCH (10:27)
[2017-09-10] MEDS: AMMONIUM LACTATE 12% LOTION 225 GM BOTTLE TP SCH (10:27)
[2017-09-10] MEDS: ASPIRIN 81 MG CHEWABLE TABLETS PO SCH (10:27)
[2017-09-10 11:03] VITALS: BP 103/68; PULSE 83; TEMP 97.4
--- NOTE | 2017-09-10 11:46 | DS ---
[facility] Detox Discharge Summary Admission Date: 09/07/17 Discharge Date: 09/10/17 - History Present History: Alcohol Dependence, Cannabis Dependence, Cocaine Dependence Additional Comments: PATIENT GOING TO [facility] ([facility]) FOR AFTERCARE. PATIENT WAS DISCHARGE FROM DETOX UNIT TO BE TAKEN TO REHAB UNIT IN STABLE MEDICAL CONDITION. Pertinent Past History: History of Iron-Deficiency Anemia, Hyperchoelsterolemia, PTSD, Depression, Insomnia. - Physical Exam Results Vital Signs: Vital Signs Temperature 97.4 F L 09/10/17 09:50 Pulse Rate 83 09/10/17 09:50 Respiratory Rate 18 09/10/17 09:50 Blood Pressure 103/68 09/10/17 09:50 O2 Sat by Pulse Oximetry (%) Pertinent Admission Physical Exam Findings: WITHDRAWAL SYMPTOMS. Laboratory Tests 09/07/17 09/07/17 09/08/17 11:30 16:00 05:45 WBC 4.8 RBC 4.39 Hgb 12.5 D Hct 39.0 MCV 88.9 MCH 28.4 MCHC 32.0 RDW 12.8 Plt Count 188 MPV 8.8 Sodium Potassium Chloride Carbon Dioxide Anion Gap BUN Creatinine Creat Clearance w eGFR Random Glucose Calcium Total Bilirubin AST ALT Alkaline Phosphatase Total Protein Albumin Urine Color Yellow Urine Appearance Clear Urine pH 5.0 Ur Specific [place] 1.024 Urine Protein Negative Urine Glucose (UA) Negative Urine Ketones Negative Urine Blood Negative Urine Nitrite Negative Urine Bilirubin Negative Urine Urobilinogen Negative Ur Leukocyte Esterase Negative RPR Titer HIV 1&2 Antibody Screen Negative HIV P24 Antigen Negative 09/08/17 09/08/17 05:45 05:45 WBC RBC Hgb Hct MCV MCH MCHC RDW Plt Count MPV Sodium 142 Potassium 4.2 Chloride 108 H Carbon Dioxide 28 Anion Gap 6 L BUN 15 D Creatinine 1.1 Creat Clearance w eGFR > 60 Random Glucose 81 Calcium 8.4 L Total Bilirubin 0.7 AST 16 D ALT 31 D Alkaline Phosphatase 61 Total Protein 6.3 L Albumin 3.4 Urine Color Urine Appearance Urine pH Ur Specific [place] Urine Protein Urine Glucose (UA) Urine Ketones Urine Blood Urine Nitrite Urine Bilirubin Urine Urobilinogen Ur Leukocyte Esterase RPR Titer Nonreactive HIV 1&2 Antibody Screen HIV P24 Antigen LABS NOTED. - Treatment Hospital Course: Detox Protocol Followed, Detoxed Safely, Responded well, Discharged Condition Good, Rehab Referral Accepted Patient has Accepted a Rehab Referral to: [facility] ([facility] N[facility] . - Medication Discharge Medications: Ambulatory Orders Aspirin [ASA -] 81 mg PO DAILY #30 tab.chew 08/09/17 Escitalopram Oxalate [Lexapro -] 10 mg PO DAILY #30 tablet 08/09/17 Simvastatin [Zocor -] 20 mg PO HS #30 tablet 08/09/17 Trazodone HCl [Desyrel -] 100 mg PO HS #30 tablet 08/09/17 Escitalopram Oxalate [Lexapro -] 10 mg PO DAILY #30 tablet 09/07/17 Trazodone HCl 100 mg PO HS #30 tablet 09/07/17 - Diagnosis (1) Alcohol dependence, uncomplicated Current Visit: Yes Status: Acute (2) Cannabis dependence Current Visit: Yes Status: Acute (3) Cocaine dependence Current Visit: Yes Status: Acute Qualifiers: Substance use status: uncomplicated Qualified Code(s): F14.20 - Cocaine dependence, uncomplicated (4) Substance induced mood disorder Current Visit: Yes Status: Acute (5) History of posttraumatic stress disorder (PTSD) Current Visit: Yes Status: Chronic (6) Insomnia Current Visit: Yes Status: Chronic Qualifiers: Insomnia type: unspecified Qualified Code(s): G47.00 - Insomnia, unspecified - AMA Did Patient Leave Against Medical Advice: No
[2017-09-10] MEDS ORDERED: chlordiazePOXIDE HCL 10 MG CAPSULE PO SCH (17:00)
== END 2017-09-10 12:20 | disposition other institution (70) | DRG 774 ==
LOC: YASAS 08:19 → Y3N 12:00
PROVIDERS: ADMIT Internal Medicine; ATTEND Internal Medicine
PROC: HZ2ZZZZ Detoxification Services for Substance Abuse Treatment (ICD-10-PCS; principal; 2017-09-07)
DX: F10.230 Alcohol dependence with withdrawal, uncomplicated (principal); F14.20 Cocaine dependence, uncomplicated; F12.20 Cannabis dependence, uncomplicated; F19.24 Other psychoactive substance dependence with psychoactive substance-induced mood disorder; E78.00 Pure hypercholesterolemia, unspecified; G47.00 Insomnia, unspecified; Z91.018 Allergy to other foods; Z86.2 Personal history of diseases of the blood and blood-forming organs and certain disorders involving the immune mechanism; Z86.59 Personal history of other mental and behavioral disorders
CPT/HCPCS: 36415; 80053; 81003; 85027; 86593; 87389; 93005; 93010

== ENCOUNTER 2017-09-10 12:48 | Inpatient (IN) | payer OTHER ==
[2017-09-10] MEDS ORDERED: ACETAMINOPHEN 325 MG TABLET (FP) PO PRN (14:30)
[2017-09-10] MEDS ORDERED: AMMONIUM LACTATE 12% LOTION 225 GM BOTTLE TP PRN (14:30)
[2017-09-10] MEDS ORDERED: guaiFENesin/D-METHORPHAN HB 10 ML UNIT-DOSE CUPS PO PRN (14:30)
[2017-09-10] MEDS ORDERED: MAG HYDROX/AL HYDROX/SIMETH 30 ML UNIT-DOSE CUP PO PRN (14:30)
[2017-09-10] MEDS ORDERED: hydrOXYzine PAMOATE 50 MG CAPSULE (FP) PO PRN (14:30)
[2017-09-10] MEDS ORDERED: MAGNESIUM HYDROX 2400MG/30ML ORAL SUSPENSION 30 ML CUP PO PRN (14:30)
[2017-09-10] MEDS ORDERED: MAGNESIUM CITRATE 300 ML BOTTLE PO PRN (14:30)
[2017-09-10] MEDS ORDERED: P-EPHED 60MG/TRIPROLIDI 2.5MG TABLET PO PRN (14:30)
[2017-09-10] MEDS ORDERED: LOPERAMIDE HCL 2 MG CAPSULE PO PRN (14:30)
[2017-09-10] MEDS ORDERED: IBUPROFEN 400 MG TABLET (FP) PO PRN (14:30)
--- NOTE | 2017-09-10 14:30 | HP ---
[facility] Rehab Assess/Revision - Admission History Admitted to Rehab from: [facility] Date of Admission to Rehab: 09/10/2017 - Vital signs Vital Signs: Vital Signs Period Temp Pulse Resp BP Sys/Arerola Pulse Ox Last 24 Hr 98 F 92 18 100/63 - Findings Detox History & Physical reviewed: Yes Concur with findings: Yes Inpatient Rehab Admission - Initial Determination Are CD services needed?: Yes Free of communicable disease: Yes Not in need of hospitalization: Yes - Rehab Admission Criteria Comorbidities: Yes Lacks judgement: Yes Patient is meeting Inpatient Rehab admission criteria:: Yes
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
[2017-09-10] MEDS: ATORVASTATIN CA 10 MG TABLET (FP) PO SCH (21:41)
[2017-09-10] MEDS: traZODone HCL 100 MG TABLET (FP) PO SCH (21:41)
[2017-09-10] MEDS: THIAMINE HCL 100 MG TABLET (FP) PO SCH (21:41)
[2017-09-10] MEDS: ASPIRIN 81 MG CHEWABLE TABLETS PO SCH (21:41)
[2017-09-11] MEDS: ESCITALOPRAM OXALATE 10 MG TABLET (FP) PO SCH (10:39)
[2017-09-11] MEDS: PRENATAL VITAMINS W/ FOLIC ACID TABLET (FP) PO SCH (10:39)
[2017-09-11] MEDS: THIAMINE HCL 100 MG TABLET (FP) PO SCH (21:33)
[2017-09-11] MEDS: ASPIRIN 81 MG CHEWABLE TABLETS PO SCH (21:33)
[2017-09-11] MEDS: traZODone HCL 100 MG TABLET (FP) PO SCH (21:33)
[2017-09-11] MEDS: ATORVASTATIN CA 10 MG TABLET (FP) PO SCH (21:33)
[2017-09-12] MEDS: PRENATAL VITAMINS W/ FOLIC ACID TABLET (FP) PO SCH (10:12)
[2017-09-12] MEDS: ESCITALOPRAM OXALATE 10 MG TABLET (FP) PO SCH (10:12)
[2017-09-12] MEDS: ATORVASTATIN CA 10 MG TABLET (FP) PO SCH (21:36)
[2017-09-12] MEDS: ASPIRIN 81 MG CHEWABLE TABLETS PO SCH (21:36)
[2017-09-12] MEDS: THIAMINE HCL 100 MG TABLET (FP) PO SCH (21:36)
[2017-09-12] MEDS: traZODone HCL 100 MG TABLET (FP) PO SCH (21:36)
[2017-09-13] MEDS: ESCITALOPRAM OXALATE 10 MG TABLET (FP) PO SCH (10:31)
[2017-09-13] MEDS: PRENATAL VITAMINS W/ FOLIC ACID TABLET (FP) PO SCH (10:31)
[2017-09-13] MEDS: ATORVASTATIN CA 10 MG TABLET (FP) PO SCH (21:32)
[2017-09-13] MEDS: traZODone HCL 100 MG TABLET (FP) PO SCH (21:32)
[2017-09-13] MEDS: ASPIRIN 81 MG CHEWABLE TABLETS PO SCH (21:32)
[2017-09-13] MEDS: THIAMINE HCL 100 MG TABLET (FP) PO SCH (21:32)
[2017-09-14] MEDS: ESCITALOPRAM OXALATE 10 MG TABLET (FP) PO SCH (10:20)
[2017-09-14] MEDS: PRENATAL VITAMINS W/ FOLIC ACID TABLET (FP) PO SCH (10:20)
[2017-09-14] MEDS: THIAMINE HCL 100 MG TABLET (FP) PO SCH (21:51)
[2017-09-14] MEDS: traZODone HCL 100 MG TABLET (FP) PO SCH (21:51)
[2017-09-14] MEDS: ASPIRIN 81 MG CHEWABLE TABLETS PO SCH (21:51)
[2017-09-14] MEDS: ATORVASTATIN CA 10 MG TABLET (FP) PO SCH (21:51)
[2017-09-15] MEDS: ESCITALOPRAM OXALATE 10 MG TABLET (FP) PO SCH (10:30)
[2017-09-15] MEDS: PRENATAL VITAMINS W/ FOLIC ACID TABLET (FP) PO SCH (10:30)
[2017-09-15] MEDS: traZODone HCL 100 MG TABLET (FP) PO SCH (21:38)
[2017-09-15] MEDS: THIAMINE HCL 100 MG TABLET (FP) PO SCH (21:38)
[2017-09-15] MEDS: ASPIRIN 81 MG CHEWABLE TABLETS PO SCH (21:38)
[2017-09-15] MEDS: ATORVASTATIN CA 10 MG TABLET (FP) PO SCH (21:38)
[2017-09-16] MEDS: PRENATAL VITAMINS W/ FOLIC ACID TABLET (FP) PO SCH (11:00)
[2017-09-16] MEDS: ESCITALOPRAM OXALATE 10 MG TABLET (FP) PO SCH (11:00)
[2017-09-16] MEDS: THIAMINE HCL 100 MG TABLET (FP) PO SCH (21:38)
[2017-09-16] MEDS: ASPIRIN 81 MG CHEWABLE TABLETS PO SCH (21:38)
[2017-09-16] MEDS: ATORVASTATIN CA 10 MG TABLET (FP) PO SCH (21:39)
[2017-09-16] MEDS: traZODone HCL 100 MG TABLET (FP) PO SCH (21:39)
[2017-09-17] MEDS: PRENATAL VITAMINS W/ FOLIC ACID TABLET (FP) PO SCH (10:13)
[2017-09-17] MEDS: ESCITALOPRAM OXALATE 10 MG TABLET (FP) PO SCH (10:13)
--- NOTE | 2017-09-17 10:21 | PN ---
BHS Progress Note (SOAP) Subjective: c/o intermittent productive cough, today notes few specks on red that appeared to be blood today. denies sick contacts, no hx of TB came in with cough on admission. partner for past few months at home is a smoker who smokes at the window in the same room. no previous exposure to smoke. denies fever, headache, chest pain, sore throat, dysphagia, hx of asthma, coagulopathy, vomiting, increased infections, rhinorrhea, sinus tenderness, palpitations. denies coughing fits leading to vomiting, shortness of breath Objective: 09/17/17 11:16 Vital Signs Period Temp Pulse Resp BP Sys/Arreola Pulse Ox Last 24 Hr 98.1 F 70 18-18 115/79 09/17/17 11:17 Laboratory Tests 09/08/17 09/08/17 05:45 05:45 WBC 4.8 Hgb 12.5 D Hct 39.0 Plt Count 188 Sodium 142 Potassium 4.2 BUN 15 D Creatinine 1.1 PE: Gen: no acute distress HEENT: no rhinorrhea, sinus tenderness, -LAD Lungs: breathing room air comfortably Ext: no edema CV: s1, s2 09/17/17 11:18 Assessment: 09/17/17 11:18 51 yr old man with hx of iron deficiency anemia, HLD, etoh/cocaine/thc dependence admitted to rehab c/o scant blood in productive cough for 1 day. scant hemoptysis likely from prolonged cough. cough has been improving since wednesday. patient is afebrile without leucocytosis. likely viral illness showing improvement with supportive intervention. 09/17/17 11:24 Plan: Plan: monitor for fevers, currently low suspicion to initiate abx or further lab/ imaging studies, consider if symptoms worsen recommended patient request cephacol, which is already ordered PRN
[2017-09-17] MEDS: ATORVASTATIN CA 10 MG TABLET (FP) PO SCH (21:33)
[2017-09-17] MEDS: ASPIRIN 81 MG CHEWABLE TABLETS PO SCH (21:33)
[2017-09-17] MEDS: traZODone HCL 100 MG TABLET (FP) PO SCH (21:33)
[2017-09-17] MEDS: THIAMINE HCL 100 MG TABLET (FP) PO SCH (21:33)
[2017-09-18] MEDS: MENTHOL/PHENOL 1 EACH UD MM PRN (06:54)
[2017-09-18] MEDS: PRENATAL VITAMINS W/ FOLIC ACID TABLET (FP) PO SCH (10:18)
[2017-09-18] MEDS: ESCITALOPRAM OXALATE 10 MG TABLET (FP) PO SCH (10:18)
[2017-09-18] MEDS: THIAMINE HCL 100 MG TABLET (FP) PO SCH (21:35)
[2017-09-18] MEDS: ASPIRIN 81 MG CHEWABLE TABLETS PO SCH (21:35)
[2017-09-18] MEDS: ATORVASTATIN CA 10 MG TABLET (FP) PO SCH (21:35)
[2017-09-18] MEDS: traZODone HCL 100 MG TABLET (FP) PO SCH (21:35)
[2017-09-19] MEDS: ESCITALOPRAM OXALATE 10 MG TABLET (FP) PO SCH (09:51)
[2017-09-19] MEDS: PRENATAL VITAMINS W/ FOLIC ACID TABLET (FP) PO SCH (09:51)
[2017-09-19] MEDS: ASPIRIN 81 MG CHEWABLE TABLETS PO SCH (21:44)
[2017-09-19] MEDS: traZODone HCL 100 MG TABLET (FP) PO SCH (21:45)
[2017-09-19] MEDS: ATORVASTATIN CA 10 MG TABLET (FP) PO SCH (21:45)
[2017-09-19] MEDS: THIAMINE HCL 100 MG TABLET (FP) PO SCH (21:45)
[2017-09-20] MEDS: ESCITALOPRAM OXALATE 10 MG TABLET (FP) PO SCH (10:07)
[2017-09-20] MEDS: PRENATAL VITAMINS W/ FOLIC ACID TABLET (FP) PO SCH (10:07)
[2017-09-20] MEDS: ASPIRIN 81 MG CHEWABLE TABLETS PO SCH (21:36)
[2017-09-20] MEDS: traZODone HCL 100 MG TABLET (FP) PO SCH (21:36)
[2017-09-20] MEDS: ATORVASTATIN CA 10 MG TABLET (FP) PO SCH (21:36)
[2017-09-20] MEDS: THIAMINE HCL 100 MG TABLET (FP) PO SCH (21:36)
[2017-09-21] MEDS: ESCITALOPRAM OXALATE 10 MG TABLET (FP) PO SCH (10:15)
[2017-09-21] MEDS: PRENATAL VITAMINS W/ FOLIC ACID TABLET (FP) PO SCH (10:15)
[2017-09-21] MEDS: ASPIRIN 81 MG CHEWABLE TABLETS PO SCH (21:47)
[2017-09-21] MEDS: THIAMINE HCL 100 MG TABLET (FP) PO SCH (21:47)
[2017-09-21] MEDS: traZODone HCL 100 MG TABLET (FP) PO SCH (21:47)
[2017-09-21] MEDS: ATORVASTATIN CA 10 MG TABLET (FP) PO SCH (21:47)
[2017-09-22] MEDS: PRENATAL VITAMINS W/ FOLIC ACID TABLET (FP) PO SCH (10:08)
[2017-09-22] MEDS: ESCITALOPRAM OXALATE 10 MG TABLET (FP) PO SCH (10:08)
[2017-09-22] MEDS: MENTHOL/PHENOL 1 EACH UD MM PRN (10:09)
[2017-09-22] MEDS ORDERED: PT OWN MED DRAWER 7, Y5N ONE (10:12)
--- NOTE | 2017-09-22 14:43 | PN ---
Psychiatric Progress Note Vital Signs: Vital Signs Period Temp Pulse Resp BP Sys/Arreola Pulse Ox Last 24 Hr 98.5 F 72 18-20 116/65 Current Medications: Active Medications Generic Name Dose Route Start Last Admin Trade Name Freq PRN Reason Stop Dose Admin Acetaminophen 650 mg 09/10/17 14:30 Tylenol - PO Q4H PRN FEVER OR PAIN Al Hydroxide/Mg Hydroxide 30 ml 09/10/17 14:30 Mylanta Oral Suspension - PO Q6H PRN DYSPEPSIA Aspirin 81 mg 09/10/17 22:00 09/21/17 21:47 Asa - PO 81 mg HS JANICE Administration Atorvastatin Calcium 10 mg 09/10/17 22:00 09/21/17 21:47 Lipitor - PO 10 mg HS JANICE Administration Escitalopram Oxalate 10 mg 09/11/17 10:00 09/22/17 10:08 Lexapro - PO 10 mg DAILY JANICE Administration Eucalyptus/Menthol/Phenol/Sorbitol 1 each 09/10/17 14:30 09/22/17 10:09 Cepastat Lozenge - MM 1 each Q4H PRN Administration SORE THROAT Guaifenesin 10 ml 09/10/17 14:30 Robitussin Dm - PO Q6H PRN COUGH Hydroxyzine Pamoate 50 mg 09/10/17 14:30 Vistaril - PO Q4H PRN AGITATION Ibuprofen 400 mg 09/10/17 14:30 Motrin - PO Q6H PRN PAIN Lactic Acid 1 applic 09/10/17 14:30 09/11/17 18:09 Lac-Hydrin 12 TP 1 applic DAILY PRN Administration DRY SKIN Loperamide HCl 4 mg 09/10/17 14:30 Imodium - PO Q6H PRN DIARRHEA Magnesium Citrate 300 ml 09/10/17 14:30 Citroma - PO Q48H PRN CONSTIPATION Magnesium Hydroxide 30 ml 09/10/17 14:30 Milk Of Magnesia - PO DAILY PRN CONSTIPATION Multivit/Folic Acid/Iron 1 tab 09/11/17 10:00 09/22/17 10:08 Vitamins (Sjr) - PO 1 tab DAILY JANICE Administration Pseudoephedrine/Triprolidine 1 combo 09/10/17 14:30 Actifed - PO TID PRN NASAL CONGESTION Thiamine HCl 100 mg 09/10/17 22:00 09/21/17 21:47 Vitamin B1 - PO 100 mg HS JANICE Administration Trazodone HCl 100 mg 09/10/17 22:00 09/21/17 21:47 Desyrel - PO 100 mg HS JANICE Administration
--- NOTE | 2017-09-22 16:18 | PN ---
Psychiatric Progress Note Vital Signs: Vital Signs Period Temp Pulse Resp BP Sys/Arreola Pulse Ox Last 24 Hr 98.5 F 72 18-20 116/65 Date of Session: 09/22/17 Chief Complaint:: discharge HPI: Pt. with a history of alcohol,cocaine, marijuana dependence. Current Medications: Active Medications Generic Name Dose Route Start Last Admin Trade Name Freq PRN Reason Stop Dose Admin Acetaminophen 650 mg 09/10/17 14:30 Tylenol - PO Q4H PRN FEVER OR PAIN Al Hydroxide/Mg Hydroxide 30 ml 09/10/17 14:30 Mylanta Oral Suspension - PO Q6H PRN DYSPEPSIA Aspirin 81 mg 09/10/17 22:00 09/21/17 21:47 Asa - PO 81 mg HS JANICE Administration Atorvastatin Calcium 10 mg 09/10/17 22:00 09/21/17 21:47 Lipitor - PO 10 mg HS JANICE Administration Escitalopram Oxalate 10 mg 09/11/17 10:00 09/22/17 10:08 Lexapro - PO 10 mg DAILY JANICE Administration Eucalyptus/Menthol/Phenol/Sorbitol 1 each 09/10/17 14:30 09/22/17 10:09 Cepastat Lozenge - MM 1 each Q4H PRN Administration SORE THROAT Guaifenesin 10 ml 09/10/17 14:30 Robitussin Dm - PO Q6H PRN COUGH Hydroxyzine Pamoate 50 mg 09/10/17 14:30 Vistaril - PO Q4H PRN AGITATION Ibuprofen 400 mg 09/10/17 14:30 Motrin - PO Q6H PRN PAIN Lactic Acid 1 applic 09/10/17 14:30 09/11/17 18:09 Lac-Hydrin 12 TP 1 applic DAILY PRN Administration DRY SKIN Loperamide HCl 4 mg 09/10/17 14:30 Imodium - PO Q6H PRN DIARRHEA Magnesium Citrate 300 ml 09/10/17 14:30 Citroma - PO Q48H PRN CONSTIPATION Magnesium Hydroxide 30 ml 09/10/17 14:30 Milk Of Magnesia - PO DAILY PRN CONSTIPATION Multivit/Folic Acid/Iron 1 tab 09/11/17 10:00 09/22/17 10:08 Vitamins (Sjr) - PO 1 tab DAILY JANICE Administration Pseudoephedrine/Triprolidine 1 combo 09/10/17 14:30 Actifed - PO TID PRN NASAL CONGESTION Thiamine HCl 100 mg 09/10/17 22:00 09/21/17 21:47 Vitamin B1 - PO 100 mg HS JANICE Administration Trazodone HCl 100 mg 09/10/17 22:00 09/21/17 21:47 Desyrel - PO 100 mg HS JANICE Administration Medication(s) Change(s): No Current Side Effect: No Lab tests ordered: No Lab tests reviewed: Yes Provider note:: Patient will complete this program on 09/22/2017. He has met his treatment goals and will continue to address his issues at outpatient treatment in [facility] [address] [facility] and will follow up with a psychiatrist and therapist at the [facility] in the [place]. He verbalized understanding of the consequence of his addiction and the need to make positive changes to his lifestyle in order to maintain abstience. Pt. responded well to trazodone 100mg. Script for 30 day supply was sent to electronically to [place] [facility]. He is stable for discharge on 09/23/2017. Total face to face time:: 25 Mental Status Exam - Mental Status Exam Alert and Oriented to: Time, Place, Person Cognitive Function: Good Patient Appearance: Well Groomed Mood: Hopeful Affect: Appropriate Patient Behavior: Appropriate, Cooperative Speech Pattern: Clear, Appropriate Voice Loudness: Normal Thought Process: Goal Oriented Thought Disorder: Not Present Hallucinations: Denies Suicidal Ideation: Denies Homicidal Ideation: Denies Insight/Judgement: Fair Sleep: Fair Appetite: Good Muscle strength/Tone: Normal Gait/Station: Normal Psychiatric Treatment Plan - Problem List (1) Alcohol dependence Current Visit: Yes (2) Cocaine dependence Current Visit: Yes Qualifiers: Substance use status: uncomplicated Qualified Code(s): F14.20 - Cocaine dependence, uncomplicated (3) Insomnia Current Visit: Yes Qualifiers: Insomnia type: unspecified Qualified Code(s): G47.00 - Insomnia, unspecified (4) Cannabis dependence Current Visit: Yes (5) Substance induced mood disorder Current Visit: Yes
[2017-09-22] MEDS: THIAMINE HCL 100 MG TABLET (FP) PO SCH (21:42)
[2017-09-22] MEDS: ASPIRIN 81 MG CHEWABLE TABLETS PO SCH (21:43)
[2017-09-22] MEDS: ATORVASTATIN CA 10 MG TABLET (FP) PO SCH (21:43)
[2017-09-22] MEDS: traZODone HCL 100 MG TABLET (FP) PO SCH (21:43)
[2017-09-23 07:07] VITALS: BP 118/78; PULSE 82; TEMP 97.8
[2017-09-23] MEDS: ESCITALOPRAM OXALATE 10 MG TABLET (FP) PO SCH (10:07)
[2017-09-23] MEDS: PRENATAL VITAMINS W/ FOLIC ACID TABLET (FP) PO SCH (10:07)
== END 2017-09-23 10:52 | disposition home or self-care (01) | DRG 772 ==
LOC: YASAS 12:48 → Y5N 12:49
PROVIDERS: ADMIT Psychiatry & Neurology Psychiatry; ATTEND Psychiatry & Neurology Psychiatry
PROC: HZ42ZZZ Group Counseling for Substance Abuse Treatment, Cognitive-Behavioral (ICD-10-PCS; principal; 2017-09-10)
DX: F10.20 Alcohol dependence, uncomplicated (principal); F14.20 Cocaine dependence, uncomplicated; F12.20 Cannabis dependence, uncomplicated; F19.24 Other psychoactive substance dependence with psychoactive substance-induced mood disorder; F39 Unspecified mood [affective] disorder; F43.10 Post-traumatic stress disorder, unspecified; G47.00 Insomnia, unspecified; D50.9 Iron deficiency anemia, unspecified; E78.5 Hyperlipidemia, unspecified; B34.9 Viral infection, unspecified; Z59.0 Homelessness